=== PATIENT | female | born 1965 | race Caucasian/White ===

== ENCOUNTER 2018-01-30 05:22 | Inpatient (IN) | payer OTHER ==
[2018-01-25 11:30] VITALS: BMI 27.0
[2018-01-25 12:55] LABS: BASO % 0.4 %; BASO ABS # 0.05 K/uL (0-0.2); EOS % 1.3 %; EOS ABS # 0.16 K/uL (0-0.5); HEMATOCRIT 41.3 % (37-47); HEMOGLOBIN 14.9 g/dL (12.0-16.0); IG# 0.12 K/uL (0.00-0.02); LYMPH % 17.9 %; LYMPH ABS # 2.16 K/uL (1.2-3.4); MEAN CELL VOLUME 92.2 fL (80-100); MEAN CORPUSCULAR HEMOGLOBIN 33.3 pg (25-34); MEAN CORPUSCULAR HGB CONC 36.1 g/dl (32-36); MEAN PLATELET VOLUME 8.6 fL (7.4-10.4); MONO % 8.4 %; MONO ABS # 1.01 K/uL (0.11-0.59); NEUT ABS # 8.55 K/uL (1.4-6.5); NUCLEATED RED BLOOD CELL ABS 0.02 K/uL (0-0); PLATELET COUNT 442 K/uL (130-400); RED CELL DISTRIBUTION WIDTH CV 12.9 % (11.5-14.5); RED CELL DISTRIBUTION WIDTH SD 43.2 fL (36.4-46.3); WHITE BLOOD COUNT 12.05 K/uL (4.8-10.8)
[2018-01-25 14:32] LABS: CREATININE 1.14 mg/dl (0.60-1.20)
[2018-01-30] VITALS (10 sets, daily range): BP systolic 97–128; BP diastolic 49–71; PULSE 64–93; TEMP 36.5–37; O2SAT 93–97; Ht 170.2 cm; Wt 78.8 kg
[~2018-01-30] VITALS: Ht 170.2 cm; Wt 78.8 kg
[~2018-01-30 05:22] MED LIST: AMB10 PO; APIX1TAB3 PO; ATOR-26 PO; BUPR-79 PO; CARBIDOPA PO; CHN/1 PO; CHOL20007 PO; CLON1TAB3 PO; CLOP1TAB15 PO; CYM/30 PO; FLUO20CA35 PO; LAMO200T35 PO; METH-307 PO; METO25TA3 PO; NAPR-1169 PO; PANT40TA PO; PRAM0.1212 PO; PRLSR20 PO; RANI150T85 PO; TEMA15CA4 PO
[2018-01-30] MEDS ORDERED: ASPI81TA28 PO (05:55)
[2018-01-30] MEDS ORDERED: LACTATED RINGER'S 1000ML 1,000 ML IV SCH (06:00)
--- NOTE | 2018-01-30 06:52 | History & Physical Bridge Note ---
H&P Re-Evaluation Bridge Note: I have examined the patient, reviewed the History & Physical and in the interval since the performance of the History & Physical I have noted the following changes of clinical significance: No changes noted
[2018-01-30] MEDS ORDERED: HYDROmorphone INJ 2 MG/ML SYR/VIAL ONE (06:59)
[2018-01-30] MEDS ORDERED: DEXAMETHASONE SOD INJ 4 MG/ML VIAL ONE (06:59)
[2018-01-30] MEDS ORDERED: FENTANYL CITRATE INJ 50 MCG/1 ML 2 ML VIAL ONE ×2 (06:59→07:34)
[2018-01-30] MEDS ORDERED: PROPOFOL IV EMULSION 10 MG/ML 20 ML VIAL IV ONE (06:59)
[2018-01-30] MEDS ORDERED: ONDANSETRON INJ 2 MG/ML 2 ML VIAL ONE ×2 (06:59→10:27)
[2018-01-30] MEDS ORDERED: LIDOCAINE HCL 2% 2 ML VIAL (20MG/ML) ONE (06:59)
[2018-01-30] MEDS ORDERED: MIDAZOLAM HCL 1 MG/ML 2ML VIAL ONE ×2 (06:59→07:21)
[2018-01-30] MEDS ORDERED: SODIUM CHLORIDE 0.9% PF 50 ML VIAL ONE (07:00)
[2018-01-30] MEDS ORDERED: BUPIVACAINE 0.5 % 5 MG/1 ML MPF 30ML VIAL ONE (07:01)
[2018-01-30] MEDS ORDERED: SODIUM CHLORIDE 0.9% INJ 10 ML VIAL ONE (07:01)
[2018-01-30] MEDS ORDERED: BUPIVACAINE LIPOSOME 1/3% 266 MG/20 ML VIAL INFIL ONE (07:01)
[2018-01-30] MEDS ORDERED: MEPERIDINE HCL 25 MG/ML CARP IV PRN (09:30)
[2018-01-30] MEDS ORDERED: LABETALOL HCL IV 5 MG/ML 20ML IV PRN (09:30)
[2018-01-30] MEDS ORDERED: ONDANSETRON INJ 2 MG/ML 2 ML VIAL IV PRN ×2 (09:30→10:45)
[2018-01-30] MEDS ORDERED: HYDROmorphone INJ 0.5 MG/0.5 ML SYR IV PRN (09:30)
[2018-01-30] MEDS ORDERED: FENTANYL CITRATE INJ 50 MCG/1 ML 2 ML VIAL IV PRN (09:30)
[2018-01-30] MEDS ORDERED: ATROPINE SULFATE 0.1 MG/ML 5ML SYR IV PRN (09:30)
[2018-01-30] MEDS ORDERED: EpHEDrine SULFATE INJ 50 MG/ML AMP IV PRN (09:30)
[2018-01-30] MEDS ORDERED: EpHEDrine SULFATE 50MG/5ML SYR ONE (09:37)
[2018-01-30] MEDS ORDERED: PHENYLEPHRINE 100MCG/ML 5ML SYR ONE (09:37)
[2018-01-30] MEDS ORDERED: MINERAL OIL LIGHT 10 ML BTL ONE (09:39)
[2018-01-30] MEDS ORDERED: TISSEEL FIBRIN SEALANT 10ML TOP ONE (09:45)
[2018-01-30] MEDS ORDERED: ROCURONIUM BROMIDE 10 MG/ML 5 ML VIAL IV ONE (10:06)
[2018-01-30] MEDS ORDERED: NEOSTIGMINE METHYLSULFATE 5 MG/5 ML SYR ONE (10:06)
[2018-01-30] MEDS ORDERED: GLYCOPYRROLATE INJ 0.2 MG/ML VIAL ONE (10:06)
--- NOTE | 2018-01-30 10:26 | [facility] Post Operative Brief Note ---
Immediate Operative Summary Operative Date Jan 30, 2018. Pre-Operative Diagnosis 1. Malignant Neoplasm Right Upper Lobe of the Lung 2. 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 Surgeon Dr. Yeison Ramírez Lan Specialist Surgeon(s) Delgado Patel PA-C Estimated Blood Loss 25mL Findings Consistent with Post-Op Diagnosis Specimens Tissue Examination: Sent fresh at 1017 A. R10 Lymph node B. Level 7 lymph node C. R4 lymph node x 2 D. R2 lymph node E.R12 Lymph node x 3 F.R11 Lymph node Frozen Section #1 Right upper lobe, need margins. Out of room at 1017. Anesthesia Type General
[2018-01-30] MEDS ORDERED: METOCLOPRAMIDE HCL INJ 5 MG/ML 2 ML VIAL ONE (11:08)
[2018-01-30] MEDS ORDERED: NURSING VERBAL MED ORDER ONE (11:15)
--- NOTE | 2018-01-30 11:46 | DIAGNOSTIC IMAGING REPORT ---
SINGLE VIEW CHEST CLINICAL HISTORY: Postoperative examination. Lung cancer. FINDINGS: An AP, portable, upright chest radiograph is compared to study dated 01/03/2018 and correlated with chest CT dated 11/12/2017. The examination is degraded by portable technique and patient rotation. The cardiomediastinal silhouette is unremarkable. There are postoperative changes and volume loss consistent with right upper lobe resection. A chest tube is seen at the right apex. No pneumothorax is clearly identified. Emphysema and chronic interstitial thickening are similar to previous. Foci of linear atelectasis are seen in the left mid to lower lung. No large pleural effusion is identified. The skeletal structures are osteopenic. The bony thorax is grossly intact. IMPRESSION: 1. There are postoperative changes and volume loss consistent with a history of right upper lobe resection. 2. A chest tube is seen at the right apex. No pneumothorax is identified. 3. There is linear atelectasis is identified in the left mid to lower lung. 4. Emphysema. Electronically signed by: Cornelio Correa M.D. 01/30/2018 11:44 AM Dictated Date/Time: 01/30/2018 11:42 AM
[2018-01-30] MEDS: D5W AND 1/2NSS 1,000 ML IV SCH ×2 (12:00→21:51)
--- NOTE | 2018-01-30 12:29 | Anesthesiology Progress Note ---
Anesthesia Post Op Note Date & Time Jan 30, 2018 at 12:29 Vital Signs Pain Intensity: 3 Vital Signs Past 12 Hours Date Time Temp Pulse Resp B/P (MAP) Pulse Ox O2 Delivery O2 Flow Rate FiO2 01/30/18 11:45 63 16 104/57 95 Oxymask 2 01/30/18 11:36 93 16 95 Nasal Cannula 2.0 01/30/18 11:35 36.5 62 20 114/56 95 Oxymask 2 01/30/18 11:25 61 12 113/55 95 Oxymask 2 01/30/18 11:15 67 13 148/71 97 Oxymask 4 01/30/18 11:05 67 14 136/73 96 Oxymask 10 01/30/18 10:55 72 16 141/68 98 Oxymask 10 01/30/18 10:49 36.0 72 15 133/73 99 Oxymask 10 01/30/18 05:57 36.8 64 16 128/61 Room Air Notes Mental Status: alert / awake / arousable, participated in evaluation Pt Amnestic to Procedure: Yes Nausea / Vomiting: adequately controlled Pain: adequately controlled Airway Patency, RR, SpO2: stable & adequate BP & HR: stable & adequate Hydration State: stable & adequate Anesthetic Complications: no major complications apparent
[2018-01-30] MEDS ORDERED: ALBUT/IPRATROP 3MG/0.5MG NEB 3 ML VIAL INH ONE (12:45)
[2018-01-30] MEDS: FLUOXETINE HCL 20 MG CAP PO SCH ×2 (13:40→21:55)
[2018-01-30] MEDS: ACETAMINOPHEN IV 1,000 MG in EMPTY BAG 0 ML IV SCH ×2 (13:40→21:54)
[2018-01-30] MEDS: PRAMIPEXOLE DIHYDROCHLORIDE 0.25MG TAB PO SCH ×2 (13:41→21:53)
[2018-01-30] MEDS: KETOROLAC TROMETHAMINE 15 MG/ML VIAL IV. SCH ×2 (13:41→21:54)
[2018-01-30] MEDS: CLONAZEPAM 1 MG TAB PO SCH ×2 (13:50→21:53)
--- NOTE | 2018-01-30 14:27 | OPERATIVE REPORT ---
DATE OF OPERATION: 01/30/2018 PREOPERATIVE DIAGNOSIS: Non-small cell lung carcinoma, right upper lobe. POSTOPERATIVE DIAGNOSIS: Non-small cell lung carcinoma, right upper lobe. PROCEDURE: Robot assisted thoracoscopic right upper lobectomy. SURGEON: Yeison Ramírez MD PROPERTY INSURANCE AGENT: ZOILA Montejo (Mr. Jorge was present for the entire case and was at the patient's bedside while I was at the console. He also closed the skin incisions at the conclusion of the case). ANESTHESIA: General anesthesia, endotracheal intubation using double lumen tube. SPECIFICS OF PROCEDURE: Marion Edouard is a 52-year-old patient who was found to have a non-small cell lung carcinoma in the mid portion of her right upper lobe. She was evaluated fully by Dr. Ross Ruiz from [facility]. The patient actually has multiple medical issues including a recent onset of Parkinson's and other comorbid factors but appeared to be stable for this procedure. On 01/30/2018, she underwent an uncomplicated right upper lobectomy with mediastinal lymphadenectomy. Her bronchial margins were clear. She tolerated it well with negligible blood loss. DESCRIPTION OF PROCEDURE: The patient was brought to the operating room and laid in supine position. General anesthesia induced. Endotracheal intubation was performed with double lumen tube. After appropriate monitoring lines had been placed, the patient was turned in the left lateral decubitus position. Right chest was prepped and draped in the usual sterile fashion. Appropriate antibiotics had been given, and appropriate timeout had been called. An incision was made at approximately the eighth interspace just above the costal margin. Carbon dioxide was infused through a 5 mm port, and a 5 mm scope showed we were in correct position. We then placed 5 mm port in the eighth interspace a few centimeters lateral to the spine. An 8 mm port was placed a bit posterior to this. A 12 mm port was placed in the eighth interspace more anterior and the 5 mm port, and the original port site was switched out to an 8 mm port and then a 15 mm mail handler assistant's port above the costal margin on the right between the 2 right most ports although it was a few rib spaces below this. One lung ventilation ensued, and carbon dioxide was infused. After appropriate docking of the robot, I then took down the posterior pleura. I dissected out a large met of level 7 lymph nodes. I also went above the azygos vein and removed the level 2 and level 4 lymph nodes. I also biopsied level 10, 11, and 12 as we were dissecting out the hilum. I freed up the bronchus going all posteriorly and inferiorly and identified these in the posterior ascending vein to the upper lobe; however, it was difficult to get the stapler around this. For this reason, I then reflected the lung down and freed up the more anterior and superior aspects and removed a large amount of lymph nodes including a huge level 10 node. We then identified the artery and the vein quite nicely. I then went down and identified the 2 branches to the right middle lobe from the vein, and I went distal to these and fired an Endo-AMARI stapler across the superior aspect. I then identified 3 main branches to the upper lobe from the pulmonary artery, and I fired Endo-AMARI staplers around the smaller arteries that were a bit more distal while had some bleeding from the staple line proximally, and I placed a large interlocking vascular clamp on this, it did stop the bleeding nicely. We really did not get much blood loss. After doing this, I was unable to easily see the bronchus and fired Endo-AMARI stapler across this. The lobe was then lifted up, and I was able to complete the fissure line using Endo-AMARI staplers along the fissure and freed up the right upper lobe completely. This was placed in an Endobag and removed. I really did not have to open our systems port much more to get this out. Bronchial margin was negative on frozen section. We mixed 266 mg of Exparel with 150 mL of saline and 30 mL of 0.1% bupivacaine without epinephrine. We then injected this mixture into the 2nd to the 11th intercostal spaces for a block and also injected all in our incisions. A 24-Kyrgyz chest tube was placed in the anterior most thoracoscopy port and directed toward the apex. A 0 Vicryl was used to close the muscle layers to the 12 mm and 15 mm port. It should be noted we had to open the 15 mm mail handler assistant's port a bit more to get the specimen out but not too much. After we closed the muscle layers. 4-0 Monocryl was used in running subcuticular fashion to approximate the wound edges. We really did not have much of an air leak, and she had negligible blood loss. She tolerated it well and was extubated in the room. I attest to the content of the Intraoperative Record and any orders documented therein. Any exception s are noted below.
[2018-01-30] MEDS: OXYCODONE HCL IR 5 MG TAB (IMMEDIATE RELEASE) PO PRN (16:11)
[2018-01-30] MEDS: METOCLOPRAMIDE HCL INJ 5 MG/ML 2 ML VIAL IV. SCH (19:30)
[2018-01-30] MEDS: MoRPHine SULFATE 2 MG/ML CARP IV PRN (19:31)
[2018-01-30] MEDS: RANITIDINE HCL 150 MG TAB PO SCH (21:55)
[2018-01-30] MEDS: VARENICLINE (CHANTIX) 1 MG TAB PO SCH (21:55)
[2018-01-30] MEDS: DOCUSATE SODIUM 100 MG CAP PO SCH (21:56)
[2018-01-31] VITALS (11 sets, daily range): BP systolic 101–149; BP diastolic 54–80; PULSE 64–72; TEMP 36.9–37.1; O2SAT 92–96
[2018-01-31] MEDS: OXYCODONE HCL IR 5 MG TAB (IMMEDIATE RELEASE) PO PRN ×4 (03:00→21:13)
[2018-01-31] MEDS: METOCLOPRAMIDE HCL INJ 5 MG/ML 2 ML VIAL IV. SCH (04:18)
[2018-01-31] MEDS: KETOROLAC TROMETHAMINE 15 MG/ML VIAL IV. SCH ×3 (05:57→21:51)
[2018-01-31] MEDS: ACETAMINOPHEN IV 1,000 MG in EMPTY BAG 0 ML IV SCH (05:57)
[2018-01-31] MEDS: D5W AND 1/2NSS 1,000 ML IV SCH (05:58)
[2018-01-31 08:22] LABS: HEMOGLOBIN 12.5 g/dL (12.0-16.0); MEAN CELL VOLUME 95.2 fL (80-100); MEAN CORPUSCULAR HEMOGLOBIN 33.1 pg (25-34); MEAN CORPUSCULAR HGB CONC 34.7 g/dl (32-36); MEAN PLATELET VOLUME 8.3 fL (7.4-10.4); PLATELET COUNT 381 K/uL (130-400); RED CELL DISTRIBUTION WIDTH CV 13.1 % (11.5-14.5); RED CELL DISTRIBUTION WIDTH SD 45.5 fL (36.4-46.3); WHITE BLOOD COUNT 17.93 K/uL (4.8-10.8)
--- NOTE | 2018-01-31 08:52 | DIAGNOSTIC IMAGING REPORT ---
CHEST ONE VIEW PORTABLE CLINICAL HISTORY: Lung carcinoma. Postoperative study COMPARISON STUDY: 01/30/2018 FINDINGS: Postsurgical changes are present on the right. There is no change the position of the right-sided chest tube. There is a trace right apical pneumothorax with a pleural separation of 2 mm. There are improving left lung atelectatic changes. There is no right lung consolidation. There are no significant pleural effusions.[ IMPRESSION: 1. Improving left lung atelectatic change 2. Trace right apical pneumothorax. Electronically signed by: Nick Enciso M.D. 01/31/2018 7:10 AM Dictated Date/Time: 01/31/2018 7:09 AM
[2018-01-31] MEDS ORDERED: ENOXAPARIN 40 MG/0.4 ML SYR SQ SCH (09:00)
[2018-01-31 09:04] LABS: CREATININE 0.94 mg/dl (0.60-1.20); POTASSIUM 3.8 mmol/L (3.5-5.1)
[2018-01-31] MEDS: CLONAZEPAM 1 MG TAB PO SCH ×3 (09:23→21:13)
[2018-01-31] MEDS: BuPROPion XL 150 MG TABCR PO SCH (09:23)
[2018-01-31] MEDS: FLUOXETINE HCL 20 MG CAP PO SCH ×3 (09:23→21:12)
[2018-01-31] MEDS: VARENICLINE (CHANTIX) 1 MG TAB PO SCH ×2 (09:24→21:12)
[2018-01-31] MEDS: PRAMIPEXOLE DIHYDROCHLORIDE 0.25MG TAB PO SCH ×3 (09:24→21:13)
[2018-01-31] MEDS: PANTOprazole SOD 40 MG TAB PO SCH (09:24)
[2018-01-31] MEDS: RANITIDINE HCL 150 MG TAB PO SCH ×2 (09:24→21:14)
[2018-01-31] MEDS: DOCUSATE SODIUM 100 MG CAP PO SCH ×2 (09:25→21:12)
[2018-01-31] MEDS: ATORVASTATIN 40 MG TAB PO SCH (09:25)
[2018-01-31] MEDS: DULOXETINE (CYMBALTA) 30 MG CAP PO SCH (09:25)
[2018-01-31] MEDS: METOPROLOL SUCC 25MG EXT REL TAB PO SCH (09:25)
[2018-01-31] MEDS: ASPIRIN 81 MG ECTAB PO SCH (09:26)
[2018-01-31] MEDS: CLOPIDOGREL BISULFATE 75 MG TAB PO SCH (10:02)
[2018-01-31] MEDS: APIXABAN 2.5 MG TAB PO SCH ×2 (10:02→21:13)
[2018-01-31] MEDS: ACETAMINOPHEN 325 MG TAB PO SCH ×3 (12:27→23:38)
--- NOTE | 2018-01-31 14:04 | SURGERY PROGRESS NOTE ---
DATE: 01/31/2018 Ms. Edouard was seen today. She has actually had an uneventful night. She states that she has "had trouble sleeping," but otherwise she is ambulating in the hallway. She is on room air. Her lungs sound good. Her x-ray shows good expansion of her remaining right lung. All in all, I am happy with her; however, she has an air leak, which was really not noted at time of surgery. I am going to put on water seal and check this again tomorrow. ASSESSMENT AND PLAN: Postop day #1 status post robotic-assisted thoracoscopic right upper lobectomy with mediastinal lymphadenectomy for early stage lung carcinoma. Other than an air leak, I think she looks quite good. We are going to stop her IV fluids today and have her ambulate and check a chest x-ray in the morning on water seal. MARQUEZ
[2018-01-31] MEDS: CARBIDOPA 25 MG PO SCH ×2 (14:08→21:14)
[2018-01-31] MEDS: MoRPHine SULFATE 2 MG/ML CARP IV PRN (22:39)
[2018-02-01] VITALS (7 sets, daily range): BP systolic 105–135; BP diastolic 66–78; PULSE 60–66; TEMP 36.5–37.1; O2SAT 93–97
[2018-02-01] MEDS: OXYCODONE HCL IR 5 MG TAB (IMMEDIATE RELEASE) PO PRN ×2 (04:03→16:21)
[2018-02-01] MEDS: KETOROLAC TROMETHAMINE 15 MG/ML VIAL IV. SCH (06:00)
[2018-02-01] MEDS: ACETAMINOPHEN 325 MG TAB PO SCH ×3 (06:01→17:54)
--- NOTE | 2018-02-01 07:17 | DIAGNOSTIC IMAGING REPORT ---
CHEST ONE VIEW PORTABLE CLINICAL HISTORY: Lung resection. COMPARISON STUDY: Chest radiograph January 31, 2018. FINDINGS: A right apical chest tube is in place. A right pneumothorax has increased in size since prior exam. Superior pleural separation measures 2.6 cm. A possible additional displaced pleural line is noted more inferiorly. There are mild bibasilar opacities. Postoperative findings within the right hemithorax are noted. Cardiac size is normal. IMPRESSION: Moderate increase in size of a small right apical pneumothorax. Right chest tube in place. Electronically signed by: Brian Shin M.D. 02/01/2018 7:15 AM Dictated Date/Time: 02/01/2018 7:12 AM
--- NOTE | 2018-02-01 08:54 | Surgery Progress Note ---
Subjective Date of Service: Feb 01, 2018. Pt. notes pain with deep inspirations. No fevers, shakes or chills. She is tolerating oral intake. She is voiding without difficulty. She notes she has been ambulating in the hallway at least 1 x per shift. Discussed with RN--concern noted that pt. has an air leak and she has coughed up a small amount of blood. Objective Vitals Date Time Temp Pulse Resp B/P (MAP) Pulse Ox O2 Delivery O2 Flow Rate FiO2 02/01/18 08:12 36.5 66 18 135/78 (97) 96 4.0 02/01/18 05:00 37.1 62 16 125/75 (92) 93 Room Air 02/01/18 01:00 36.7 60 16 121/72 (88) 95 Nasal Cannula 4.0 01/31/18 23:26 Nasal Cannula 4.0 01/31/18 21:00 37.1 64 18 132/72 (92) 92 Nasal Cannula 4.0 01/31/18 17:02 37.0 69 18 136/68 (90) 95 Nasal Cannula 2.0 01/31/18 16:42 93 Nasal Cannula 2.0 01/31/18 15:25 Nasal Cannula 2.0 01/31/18 13:44 96 Nasal Cannula 2.0 01/31/18 13:00 36.9 72 16 131/76 (94) 93 Room Air 01/31/18 12:28 37.1 65 16 149/80 (103) 94 Nasal Cannula 2.0 01/31/18 12:22 94 Nasal Cannula 2.0 Physical Exam General: + well developed, + well nourished, No distress CV: + RRR Pulmonary: + pertinent finding (BS are decreased at bases with occaisional rhonchi noted), No accessory muscle use, No respiratory distress Abdomen: + non tender, + soft Extremities: No calf tenderness Neurologic: + alert & oriented x 3 Radiology CXR today shows an apical pneumothorax Drains / Tubes chest tube (115 cc draineg last 24 hours; 50 cc last shift; (+) air leak noted ) Assessment & Plan 52 year old female POD #2 Robotic RUL -keep CT in place due to noted air leak and pneumothorax -encourage coughing, deep breathing, use of IS and ambulation -continue pain control measures HTN -home meds resumed: -toprol 25 mg daily A-FIB -HR well controlled -home meds resumed: -toprol as noted above -Eliquis 5 mg bid -plavix 75 mg daily PARKINSON'S -home meds resumed: -carbidopa 25 mg tid OTHER -pt. takes Eliquis 5 mg BID as outpt.--this was resumed POD#1 and will serve as DVT prevention
[2018-02-01] MEDS: CLONAZEPAM 1 MG TAB PO SCH ×3 (09:09→21:00)
[2018-02-01] MEDS: MoRPHine SULFATE 2 MG/ML CARP IV PRN (09:09)
[2018-02-01] MEDS: CARBIDOPA 25 MG PO SCH ×3 (09:10→21:04)
[2018-02-01] MEDS: PANTOprazole SOD 40 MG TAB PO SCH (09:10)
[2018-02-01] MEDS: CLOPIDOGREL BISULFATE 75 MG TAB PO SCH (09:10)
[2018-02-01] MEDS: ATORVASTATIN 40 MG TAB PO SCH (09:10)
[2018-02-01] MEDS: METOPROLOL SUCC 25MG EXT REL TAB PO SCH (09:11)
[2018-02-01] MEDS: VARENICLINE (CHANTIX) 1 MG TAB PO SCH ×2 (09:11→21:03)
[2018-02-01] MEDS: DULOXETINE (CYMBALTA) 30 MG CAP PO SCH (09:11)
[2018-02-01] MEDS: APIXABAN 2.5 MG TAB PO SCH ×2 (09:12→21:03)
[2018-02-01] MEDS: FLUOXETINE HCL 20 MG CAP PO SCH ×3 (09:12→21:04)
[2018-02-01] MEDS: ASPIRIN 81 MG ECTAB PO SCH (09:13)
[2018-02-01] MEDS: BuPROPion XL 150 MG TABCR PO SCH (09:14)
[2018-02-01] MEDS: RANITIDINE HCL 150 MG TAB PO SCH ×2 (09:14→21:02)
[2018-02-01] MEDS: PRAMIPEXOLE DIHYDROCHLORIDE 0.25MG TAB PO SCH ×3 (09:14→21:02)
[2018-02-01] MEDS: DOCUSATE SODIUM 100 MG CAP PO SCH ×2 (09:16→21:02)
[2018-02-01] MEDS ORDERED: PIPERACILL/TAZOBAC CONSULT ACTIVE PRN ×2 (09:45→10:00)
[2018-02-01] MEDS ORDERED: GABAPENTIN 100 MG CAP PO ONE (10:00)
[2018-02-01] MEDS ORDERED: GUAIFENESIN 600 MG TABCR PO ONE (10:00)
[2018-02-01] MEDS ORDERED: PIPERACILL/TAZOBAC IV 3.375 GM in DEXTROSE 5% 100ML 100 ML IV ONE (10:15)
--- NOTE | 2018-02-01 10:41 | SURGERY PROGRESS NOTE ---
DATE: 02/01/2018 Ms. Edouard is now 48 hours status post robot-assisted thoracoscopic right upper lobectomy and mediastinal lymphadenectomy. I spoke to pathology today, and hopefully, her slides will be up this afternoon. The patient is complaining of increasing pain and has a cough. She coughed up some greenish sputum, mixed with old blood. It is rather thick. We are going to put her on Mucinex 600 mg b.i.d. and we are also going to resume her suction. She still has an air leak, although I think it is better than yesterday. We are going to do a sputum sample, start her on antibiotics and recheck a chest x-ray in the morning. She is ambulating in the hallway. We are also going to start her on some Neurontin for pain.
[2018-02-01] MEDS: GABAPENTIN 100 MG CAP PO SCH ×2 (13:34→21:02)
[2018-02-01] MEDS: PIPERACILL/TAZOBAC IV 3.375 GM in DEXTROSE 5% 100ML 100 ML IV SCH (16:09)
[2018-02-01] MEDS: GUAIFENESIN 600 MG TABCR PO SCH (21:03)
[2018-02-02] MEDS: PIPERACILL/TAZOBAC IV 3.375 GM in DEXTROSE 5% 100ML 100 ML IV SCH ×3 (00:09→16:08)
[2018-02-02] MEDS: ACETAMINOPHEN 325 MG TAB PO SCH ×4 (00:10→17:46)
[2018-02-02 03:27] VITALS: PULSE 75; O2SAT 89
[2018-02-02 03:31] VITALS: O2SAT 95
[2018-02-02] MEDS: OXYCODONE HCL IR 5 MG TAB (IMMEDIATE RELEASE) PO PRN ×3 (03:36→15:02)
--- NOTE | 2018-02-02 07:07 | DIAGNOSTIC IMAGING REPORT ---
CHEST ONE VIEW PORTABLE CLINICAL HISTORY: lung resection postoperative COMPARISON STUDY: 02/01/2018 FINDINGS: Slight decrease in volume of right apical pneumothorax. Maximum pleural separation currently is 2 cm. Lungs otherwise are generally clear. Minimal left basilar atelectatic change unaltered. Bilateral chest tube unchanged in position. IMPRESSION: Small residual right apical pneumothorax slightly diminished in findings from the prior study. The above report was generated using voice recognition software. It may contain grammatical, syntax or spelling errors. Electronically signed by: Bandar Cardona M.D. 02/02/2018 7:06 AM Dictated Date/Time: 02/02/2018 7:05 AM
[2018-02-02 07:25] VITALS: BP 140/82; PULSE 67; TEMP 36.9; O2SAT 94
[2018-02-02 07:37] LABS: BASO % 0.2 %; BASO ABS # 0.03 K/uL (0-0.2); EOS % 2.2 %; EOS ABS # 0.31 K/uL (0-0.5); HEMATOCRIT 37.4 % (37-47); HEMOGLOBIN 13.2 g/dL (12.0-16.0); IG# 0.11 K/uL (0.00-0.02); LYMPH % 17.8 %; MEAN CORPUSCULAR HEMOGLOBIN 32.8 pg (25-34); MEAN CORPUSCULAR HGB CONC 35.3 g/dl (32-36); MEAN PLATELET VOLUME 8.4 fL (7.4-10.4); MONO % 7.9 %; NEUT % 71.1 %; NEUT ABS # 9.96 K/uL (1.4-6.5); PLATELET COUNT 406 K/uL (130-400); RED CELL DISTRIBUTION WIDTH CV 12.8 % (11.5-14.5); RED CELL DISTRIBUTION WIDTH SD 43.5 fL (36.4-46.3); WHITE BLOOD COUNT 14.01 K/uL (4.8-10.8)
[2018-02-02 08:10] LABS: CREATININE 1.12 mg/dl (0.60-1.20)
--- NOTE | 2018-02-02 08:50 | SURGERY PROGRESS NOTE ---
DATE: 02/02/2018 Ms. Edouard is postop day 3 status post robotic-assisted thoracoscopic right upper lobectomy and mediastinal lymphadenectomy. I discussed this case with Dr. Figueroa Espino from pathology yesterday and the patient is a stage I adenocarcinoma. She has no evidence of metastatic spread in any of her lymph nodes and I did a complete lymphadenectomy. Of interest there was a large node in the right level 4 area. This was unexpected from her CT scan. Dr. Espino states that this was a large node. He did not think this represented any type of active infection. There was no evidence of carcinoma; however, he is going to do flow cytometry to make sure it is not lymphoma, but he feels that is a low probability also. Overall, I am quite pleased with the pathology and she will not require any further chemotherapy or radiation. The patient is better than she was yesterday. She was struggling yesterday. Her vital signs are stable. She has been on and off room air. Right now she is 96% on 2 L. She still has some decreased breath sounds on the right, but I think her x-ray looks quite good. Her air leak is much improved. The drainage from her chest tube is 225 mL of serous fluid yesterday, but this is better. Her white count is down to 14,010 and her hemoglobin is stable at 13.2. ASSESSMENT AND PLAN: 1. Postop day #3, status post robot-assisted thoracoscopic right upper lobectomy, mediastinal lymphadenectomy. 2. Stage I adenocarcinoma, right upper lobe. 3. Persistent air leak. Her air leak is getting better. She has marked fluctuation in her chest tube, but the leak is definitely smaller and I think her x-ray looks quite good today. We are going to continue pushing on and having her ambulate in the hallway as she has been doing. Her sputum production is decreased. The Gram stain and culture is still pending on her sputum from yesterday, but her lungs sound better and she is really not producing much in the way of sputum. [facility]
[2018-02-02] MEDS: ASPIRIN 81 MG ECTAB PO SCH (09:42)
[2018-02-02] MEDS: BuPROPion XL 150 MG TABCR PO SCH (09:42)
[2018-02-02] MEDS: CLOPIDOGREL BISULFATE 75 MG TAB PO SCH (09:43)
[2018-02-02] MEDS: METOPROLOL SUCC 25MG EXT REL TAB PO SCH (09:43)
[2018-02-02] MEDS: PANTOprazole SOD 40 MG TAB PO SCH (09:43)
[2018-02-02] MEDS: ATORVASTATIN 40 MG TAB PO SCH (09:43)
[2018-02-02] MEDS: DOCUSATE SODIUM 100 MG CAP PO SCH ×2 (09:43→20:52)
[2018-02-02] MEDS: RANITIDINE HCL 150 MG TAB PO SCH ×2 (09:44→20:50)
[2018-02-02] MEDS: PRAMIPEXOLE DIHYDROCHLORIDE 0.25MG TAB PO SCH ×3 (09:44→20:50)
[2018-02-02] MEDS: CARBIDOPA 25 MG PO SCH ×3 (09:45→20:52)
[2018-02-02] MEDS: GUAIFENESIN 600 MG TABCR PO SCH ×2 (09:45→20:50)
[2018-02-02] MEDS: GABAPENTIN 100 MG CAP PO SCH ×3 (09:45→20:51)
[2018-02-02] MEDS: DULOXETINE (CYMBALTA) 30 MG CAP PO SCH (09:46)
[2018-02-02] MEDS: APIXABAN 2.5 MG TAB PO SCH ×2 (09:46→20:52)
[2018-02-02] MEDS: VARENICLINE (CHANTIX) 1 MG TAB PO SCH ×2 (09:46→20:51)
[2018-02-02] MEDS: FLUOXETINE HCL 20 MG CAP PO SCH ×3 (09:46→20:51)
[2018-02-02] MEDS: CLONAZEPAM 1 MG TAB PO SCH ×3 (09:51→20:54)
[2018-02-02 15:24] VITALS: BP 107/64; PULSE 76; TEMP 37; O2SAT 90
[2018-02-02 16:15] VITALS: O2SAT 90
[2018-02-02 22:45] VITALS: BP 124/77; PULSE 65; TEMP 37.2; O2SAT 94
[2018-02-03] MEDS: ACETAMINOPHEN 325 MG TAB PO SCH ×4 (00:03→17:12)
[2018-02-03] MEDS: PIPERACILL/TAZOBAC IV 3.375 GM in DEXTROSE 5% 100ML 100 ML IV SCH ×3 (00:03→17:06)
[2018-02-03] MEDS: OXYCODONE HCL IR 5 MG TAB (IMMEDIATE RELEASE) PO PRN ×3 (03:23→21:31)
[2018-02-03 06:24] LABS: CREATININE 0.88 mg/dl (0.60-1.20)
[2018-02-03 07:15] VITALS: BP 121/71; PULSE 62; TEMP 37; O2SAT 96
[2018-02-03] MEDS: FLUOXETINE HCL 20 MG CAP PO SCH ×3 (08:30→21:33)
[2018-02-03] MEDS: APIXABAN 2.5 MG TAB PO SCH ×2 (08:30→21:32)
[2018-02-03] MEDS: GABAPENTIN 100 MG CAP PO SCH ×3 (08:30→21:32)
[2018-02-03] MEDS: VARENICLINE (CHANTIX) 1 MG TAB PO SCH ×2 (08:31→21:33)
[2018-02-03] MEDS: ATORVASTATIN 40 MG TAB PO SCH (08:31)
[2018-02-03] MEDS: PANTOprazole SOD 40 MG TAB PO SCH (08:31)
[2018-02-03] MEDS: CLOPIDOGREL BISULFATE 75 MG TAB PO SCH (08:31)
[2018-02-03] MEDS: METOPROLOL SUCC 25MG EXT REL TAB PO SCH (08:31)
[2018-02-03] MEDS: GUAIFENESIN 600 MG TABCR PO SCH ×2 (08:31→21:32)
[2018-02-03] MEDS: DULOXETINE (CYMBALTA) 30 MG CAP PO SCH (08:31)
[2018-02-03] MEDS: PRAMIPEXOLE DIHYDROCHLORIDE 0.25MG TAB PO SCH ×3 (08:31→21:31)
[2018-02-03] MEDS: RANITIDINE HCL 150 MG TAB PO SCH ×2 (08:31→21:31)
[2018-02-03] MEDS: CARBIDOPA 25 MG PO SCH ×3 (08:31→21:34)
[2018-02-03] MEDS: BuPROPion XL 150 MG TABCR PO SCH (08:31)
[2018-02-03] MEDS: DOCUSATE SODIUM 100 MG CAP PO SCH ×2 (08:31→21:32)
[2018-02-03] MEDS: ASPIRIN 81 MG ECTAB PO SCH (08:34)
[2018-02-03] MEDS: CLONAZEPAM 1 MG TAB PO SCH (08:35)
[2018-02-03] MEDS ORDERED: CLONAZEPAM 1 MG TAB PO PRN (09:45)
--- NOTE | 2018-02-03 10:11 | SURGERY PROGRESS NOTE ---
DATE: 02/03/2018 SUBJECTIVE: Ms. Edouard was seen today on 02/03/2018. She is now postoperative day 4 status post a robot-assisted thoracoscopic right upper lobectomy and mediastinal lymphadenectomy. She looks much better. She is no longer producing sputum. Her lungs are much clearer. She is on room air. She is ambulating in the hallway. She still has a tiny air leak which is intermittent, however, she is not ready to have her chest tube removed today. I am going to check a CBC on her in the morning and check an x-ray. She has not moved her bowels at this point and we are going to give her some MiraLax today. The Gram-stain from her sputum showed normal michele. ASSESSMENT AND PLAN: Postoperative day number 4. I am happy with her progress and hopefully we will be getting her out of the hospital in the next 48 hours or so.
[2018-02-03] MEDS: POLYETHYLENE (MIRALAX) 17 GM PACK PO SCH (13:00)
[2018-02-03 15:01] VITALS: BP 112/69; PULSE 63; TEMP 36.5; O2SAT 94
[2018-02-03 23:05] VITALS: BP 104/67; PULSE 61; TEMP 37; O2SAT 91
[2018-02-04] MEDS: ACETAMINOPHEN 325 MG TAB PO SCH ×5 (00:29→23:41)
[2018-02-04] MEDS: PIPERACILL/TAZOBAC IV 3.375 GM in DEXTROSE 5% 100ML 100 ML IV SCH ×4 (00:30→23:40)
[2018-02-04] MEDS: OXYCODONE HCL IR 5 MG TAB (IMMEDIATE RELEASE) PO PRN ×3 (05:54→21:32)
[2018-02-04 06:19] VITALS: O2SAT 97
[2018-02-04 06:19] LABS: BASO % 0.2 %; BASO ABS # 0.03 K/uL (0-0.2); EOS % 3.2 %; EOS ABS # 0.44 K/uL (0-0.5); HEMOGLOBIN 12.5 g/dL (12.0-16.0); LYMPH % 13.1 %; LYMPH ABS # 1.81 K/uL (1.2-3.4); MEAN CELL VOLUME 93.6 fL (80-100); MEAN CORPUSCULAR HEMOGLOBIN 33.4 pg (25-34); MEAN CORPUSCULAR HGB CONC 35.7 g/dl (32-36); MEAN PLATELET VOLUME 8.1 fL (7.4-10.4); MONO % 10.3 %; MONO ABS # 1.42 K/uL (0.11-0.59); NEUT % 71.8 %; NEUT ABS # 9.94 K/uL (1.4-6.5); PLATELET COUNT 420 K/uL (130-400); RED CELL DISTRIBUTION WIDTH CV 13.3 % (11.5-14.5); RED CELL DISTRIBUTION WIDTH SD 45.4 fL (36.4-46.3); WHITE BLOOD COUNT 13.84 K/uL (4.8-10.8)
--- NOTE | 2018-02-04 07:52 | DIAGNOSTIC IMAGING REPORT ---
CHEST ONE VIEW PORTABLE CLINICAL HISTORY: 52 years-old Female presenting with lobectomy. TECHNIQUE: Portable upright AP view of the chest was obtained. COMPARISON: 02/02/2018. FINDINGS: Large bore right pleural drain remains positioned in the right upper hemithorax. Postsurgical changes of the right lung noted in the right hilum. Atherosclerosis of aortic arch. Cardiac silhouette normal in size. Minimal hazy left basilar opacity persists. Trace right apical pneumothorax decreased in size from prior. No large pleural effusion. Osseous structures normal. Upper abdomen normal. IMPRESSION: 1. Decreased size of the now trace right apical pneumothorax with the large bore right pleural drain remaining in place. 2. Left basilar atelectasis suspected. Electronically signed by: Figueroa Valenzuela M.D. 02/04/2018 7:50 AM Dictated Date/Time: 02/04/2018 7:49 AM
[2018-02-04 08:00] VITALS: BP 106/65; PULSE 69; TEMP 37; O2SAT 94
[2018-02-04] MEDS: GUAIFENESIN 600 MG TABCR PO SCH ×2 (08:28→21:26)
[2018-02-04] MEDS: ATORVASTATIN 40 MG TAB PO SCH (08:28)
[2018-02-04] MEDS: APIXABAN 2.5 MG TAB PO SCH ×2 (08:28→21:24)
[2018-02-04] MEDS: CLOPIDOGREL BISULFATE 75 MG TAB PO SCH (08:28)
[2018-02-04] MEDS: DOCUSATE SODIUM 100 MG CAP PO SCH ×2 (08:29→21:25)
[2018-02-04] MEDS: DULOXETINE (CYMBALTA) 30 MG CAP PO SCH (08:29)
[2018-02-04] MEDS: RANITIDINE HCL 150 MG TAB PO SCH ×2 (08:29→21:26)
[2018-02-04] MEDS: BuPROPion XL 150 MG TABCR PO SCH (08:29)
[2018-02-04] MEDS: METOPROLOL SUCC 25MG EXT REL TAB PO SCH (08:29)
[2018-02-04] MEDS: PRAMIPEXOLE DIHYDROCHLORIDE 0.25MG TAB PO SCH ×3 (08:29→21:26)
[2018-02-04] MEDS: ASPIRIN 81 MG ECTAB PO SCH (08:30)
[2018-02-04] MEDS: FLUOXETINE HCL 20 MG CAP PO SCH ×3 (08:30→21:24)
[2018-02-04] MEDS: GABAPENTIN 100 MG CAP PO SCH ×3 (08:31→21:23)
[2018-02-04] MEDS: POLYETHYLENE (MIRALAX) 17 GM PACK PO SCH (08:31)
[2018-02-04] MEDS: PANTOprazole SOD 40 MG TAB PO SCH (08:31)
[2018-02-04] MEDS: VARENICLINE (CHANTIX) 1 MG TAB PO SCH ×2 (08:31→21:24)
[2018-02-04] MEDS: CARBIDOPA 25 MG PO SCH ×3 (08:32→21:22)
--- NOTE | 2018-02-04 09:05 | SURGERY PROGRESS NOTE ---
DATE: 02/04/2018 Ms. Edouard is now postoperative day #5 status post Robot-assisted thoracoscopic right upper lobectomy and mediastinal lymphadenectomy. She has been in the hospital because she has an issue with an air leak that developed postoperatively. This is now stopped. She has a small one yesterday. Does not have one now. Her drainage has dropped. Her x-ray looks great today. She sounds much better and her cough is all, but resolved. ASSESSMENT AND PLAN: 1. Postoperative day #5 status post Robot-assisted thoracoscopic right upper lobectomy and mediastinal lymphadenectomy. 2. Postoperative air leak (resolved) 3. Productive cough -- resolved. I am going to remove her chest tube in the morning and discharge her. I am quite pleased with the fact that she has a stage IA nonsmall cell lung carcinoma. [facility]
[2018-02-04 14:59] VITALS: BP 112/71; PULSE 69; TEMP 37.3; O2SAT 94
[2018-02-04 17:35] VITALS: O2SAT 96
[2018-02-04 23:14] VITALS: BP 112/68; PULSE 63; TEMP 36.9; O2SAT 90
[2018-02-05] MEDS: OXYCODONE HCL IR 5 MG TAB (IMMEDIATE RELEASE) PO PRN (03:38)
[2018-02-05] MEDS: ACETAMINOPHEN 325 MG TAB PO SCH (06:26)
[2018-02-05] MEDS ORDERED: CLC100 PO (07:32)
--- NOTE | 2018-02-05 07:35 | Discharge Instructions ---
Discharge Instructions Date of Service February 05, 2018. Admission Reason for Admission: Right Lung Cancer Discharge Discharge Diagnosis / Problem: Lung Cancer Discharge Goals Goal(s): Improve disease control Activity Recommendations Activity Limitations: as noted below Lifting Limitations: none 1. Do not drive until cleared to do so by Dr. Ramírez. 2. You may remove dressings on February 08, 2018, and shower thereafter. No tub baths. . Instructions / Follow-Up Instructions / Follow-Up 1. Office appointment with Dr. Ramírez in 1 week. Office will call you with date and time of appointment. go to hospital 1 hour before appointment to have a chest x-ray taken. Current Hospital Diet Patient's current hospital diet: Regular Diet Discharge Diet Recommended Diet: Regular Diet Procedures Procedures Performed: Robot assisted Right Video Assisted Thoracoscopy, Right Upper lobectomy, Mediastinal Lymphadenectomy. Pending Studies Studies pending at discharge: no Medical Emergencies . Who to Call and When: Medical Emergencies: If at any time you feel your situation is an emergency, please call 911 immediately. . Non-Emergent Contact Non-Emergency issues call your: Surgeon Call Non-Emergent contact if: you have a fever, your pain is not controlled, wound has increased drainage . "Provider Documentation" section prepared by Delgado Patel. .
[2018-02-05] MEDS: PIPERACILL/TAZOBAC IV 3.375 GM in DEXTROSE 5% 100ML 100 ML IV SCH (07:51)
[2018-02-05 08:03] VITALS: BP 140/76; PULSE 77; TEMP 36.6; O2SAT 94
[2018-02-05] MEDS ORDERED: AMOX875T PO (08:48)
[2018-02-05] MEDS ORDERED: ACET-1047 PO (08:48)
[2018-02-05] MEDS: GABAPENTIN 100 MG CAP PO SCH (08:58)
[2018-02-05] MEDS: ASPIRIN 81 MG ECTAB PO SCH (08:58)
[2018-02-05] MEDS: METOPROLOL SUCC 25MG EXT REL TAB PO SCH (08:59)
[2018-02-05] MEDS: APIXABAN 2.5 MG TAB PO SCH (08:59)
[2018-02-05] MEDS: DULOXETINE (CYMBALTA) 30 MG CAP PO SCH (08:59)
[2018-02-05] MEDS: VARENICLINE (CHANTIX) 1 MG TAB PO SCH (08:59)
[2018-02-05] MEDS: CLOPIDOGREL BISULFATE 75 MG TAB PO SCH (08:59)
[2018-02-05] MEDS: GUAIFENESIN 600 MG TABCR PO SCH (08:59)
[2018-02-05] MEDS: DOCUSATE SODIUM 100 MG CAP PO SCH (08:59)
[2018-02-05] MEDS: BuPROPion XL 150 MG TABCR PO SCH (08:59)
[2018-02-05] MEDS: FLUOXETINE HCL 20 MG CAP PO SCH (09:00)
[2018-02-05] MEDS: ATORVASTATIN 40 MG TAB PO SCH (09:00)
[2018-02-05] MEDS: PRAMIPEXOLE DIHYDROCHLORIDE 0.25MG TAB PO SCH (09:00)
[2018-02-05] MEDS: PANTOprazole SOD 40 MG TAB PO SCH (09:00)
[2018-02-05] MEDS: CARBIDOPA 25 MG PO SCH (09:01)
[2018-02-05] MEDS: RANITIDINE HCL 150 MG TAB PO SCH (09:01)
[2018-02-05] MEDS: POLYETHYLENE (MIRALAX) 17 GM PACK PO SCH (09:02)
--- NOTE | 2018-02-05 09:21 | DIAGNOSTIC IMAGING REPORT ---
CHEST ONE VIEW PORTABLE CLINICAL HISTORY: 52 years-old Female presenting with tube removal, right lung cancer. TECHNIQUE: Portable upright AP view of the chest was obtained. COMPARISON: 02/04/2018. FINDINGS: Large bore right pleural drain has been removed. Postsurgical changes of the right lung and evidence by suture margins in the right hilum. Interval resolution of the trace right apical pneumothorax. Atherosclerosis of the aortic arch. Cardiac silhouette normal in size. Minimal linear opacity at the left lung base persists. No large effusion. Osseous structures normal. Upper abdomen normal. IMPRESSION: 1. Interval removal of the large bore right pleural drain. No residual pneumothorax. 2. Post surgical changes of the right lung. Electronically signed by: Figueroa Valenzuela M.D. 02/05/2018 9:20 AM Dictated Date/Time: 02/05/2018 9:18 AM
[2018-02-05 09:30] VITALS: O2SAT 94
[2018-02-05 10:42] VITALS: BP 140/76; PULSE 77; TEMP 36.6; O2SAT 94
--- NOTE | 2018-02-06 00:55 | DISCHARGE SUMMARY ---
DISCHARGE DIAGNOSIS: Adenocarcinoma, right upper lobe. HOSPITAL COURSE: This is a very nice 52-year-old female who was worked up extensively by Dr. Ross Ruiz from [facility]. She has multiple other issues including recent onset of Parkinson's and history of cigarette smoking; however, she was found to have an adenocarcinoma. On 01/30/2018, the patient underwent an uncomplicated robot-assisted thoracoscopic right upper lobectomy with mediastinal lymphadenectomy. She tolerated it quite well with negligible blood loss. Patient was awakened and extubated. I was surprised to see that she had a bit of an air leak the night of surgery. It did not appear she was leaking air at that time. We followed this and it got smaller progressively. She also developed a cough productive of what appeared to me to be purulent sputum, although we sent off culture and only got a normal michele. In addition, initially her white count was a bit elevated at 17,930, but this eventually dropped to 13,840. She was afebrile. She was ambulating in the hallway and tolerating a regular diet. She was on room air. Quite frankly, I was extremely happy with her. I started her on antibiotics in the form of Zosyn and Mucinex and her cough really resolved to a great extent. Her air leak finally stopped on the morning of the 5th postoperative day. I left it in 1 more day and then pulled it out on postop day #6. Her incisions were clean. Her x-ray looked quite good after we removed it. She had some pain but has tramadol which she uses at home. I have asked the patient to see me back next week. She had a stage IB N0 M0 carcinoma. She is a stage IA. She will not need any further therapy. I will see her back next week to give her a copy of the path report and check a chest x-ray. MARQUEZ
== END 2018-02-05 11:23 | disposition home or self-care (01) | DRG 164 ==
LOC: C.ACU 05:22 → C.MSN 06:45 → ENRESERV 11:33
PROVIDERS: ADMIT Surgery; ATTEND Surgery
PROC: 07B74ZX Excision of Thorax Lymphatic, Percutaneous Endoscopic Approach, Diagnostic (ICD-10-PCS; principal; 2018-01-30 07:30)
PROC: 0BTC4ZZ Resection of Right Upper Lung Lobe, Percutaneous Endoscopic Approach (ICD-10-PCS; principal; 2018-01-30 07:30)
PROC: 8E0W4CZ Robotic Assisted Procedure of Trunk Region, Percutaneous Endoscopic Approach (ICD-10-PCS; principal; 2018-01-30 07:30)
DX: C34.11 Malignant neoplasm of upper lobe, right bronchus or lung (principal); J95.812 Postprocedural air leak; J43.9 Emphysema, unspecified; G20 Parkinson's disease; I48.0 Paroxysmal atrial fibrillation; I10 Essential (primary) hypertension; F17.210 Nicotine dependence, cigarettes, uncomplicated; Z79.01 Long term (current) use of anticoagulants; Z79.899 Other long term (current) drug therapy; Z80.1 Family history of malignant neoplasm of trachea, bronchus and lung

== ENCOUNTER → 2018-02-14 | Outpatient (CLI) | payer OTHER ==
[~2018-02-14] MED LIST changes: +ACET-1047 PO; +ASPI81TA28 PO; -CHOL20007 PO; +CLC100 PO; -NAPR-1169 PO; -TEMA15CA4 PO
--- NOTE | 2018-02-14 13:51 | DIAGNOSTIC IMAGING REPORT ---
CHEST 2 VIEWS ROUTINE HISTORY: C34.11 Malignant neoplasm of upper lobe of right lung COMPARISON: Chest 02/05/2018. FINDINGS: Suture material within the right hilum consistent with prior right upper lobectomy. This remains unchanged. The lungs are clear. The heart is normal in size. No pleural effusions. No pneumothorax. Stable volume loss within the right hemithorax due to the postoperative changes. IMPRESSION: No significant change compared to the prior study. No acute process. Electronically signed by: Claudio Morton M.D. 02/14/2018 1:50 PM Dictated Date/Time: 02/14/2018 1:48 PM
== END | disposition home or self-care (01) ==
LOC: C.RAD 13:12
PROVIDERS: ATTEND Surgery
DX: C34.11 Malignant neoplasm of upper lobe, right bronchus or lung (principal)